=== PATIENT | female | born 1965 | race Caucasian/White ===

== ENCOUNTER 2016-08-11 16:37 | Emergency (ER) | payer MEDICAID | END 2016-08-11 18:45 | disposition home or self-care (01) | LOC: D.ER 16:37 | DX: S16.1XXA Strain of muscle, fascia and tendon at neck level, initial encounter (principal); V43.62XA Car passenger injured in collision with other type car in traffic accident, initial encounter; Y93.89 Activity, other specified; Y92.410 Unspecified street and highway as the place of occurrence of the external cause; S29.012A Strain of muscle and tendon of back wall of thorax, initial encounter; F17.200 Nicotine dependence, unspecified, uncomplicated ==

== ENCOUNTER 2018-04-06 05:40 | Emergency (ER) | payer MEDICAID ==
[~2018-04-06] VITALS: Ht 167.6 cm; Wt 63.6 kg
[2018-04-06 05:45] VITALS: Ht 167.6 cm; Wt 63.6 kg
[2018-04-06] MEDS ORDERED: CLARITIN 10 MG10 MG PO (05:47)
[2018-04-06] MEDS ORDERED: BENADRYL25 MG PO (05:47)
[2018-04-06] MEDS ORDERED: PHENYLEPHRINE (05:48)
[2018-04-06] MEDS ORDERED: MUCINEX600 MG PO (05:48)
[2018-04-06 07:10] LABS: ALBUMIN 3.5 g/dL (3.4-5.0); ALKALINE PHOSPHATASE 88 U/L (46-116); ALT (SGPT) 18 U/L (10-68); BILIRUBIN - TOTAL 0.43 mg/dL (0.2-1.3); CALC OSMOLALITY 278 mosm/kg (275-300); CALCIUM 8.6 mg/dL (8.5-10.1); CARBON DIOXIDE 22.2 mmol/L (21.0-32.0); CHLORIDE - SERUM 105 mmol/L (98-107); CREATININE - SERUM 0.6 mg/dL (0.6-1.3); GLUCOSE 119 mg/dL (74-106); POTASSIUM - SERUM 3.6 mmol/L (3.5-5.1); PROTEIN - SERUM 7.3 g/dL (6.4-8.2); SODIUM 140 mmol/L (136-145); UREA NITROGEN 9 mg/dL (7-18); eGFR NON AFRICAN AMERICAN > 90 mL/min (90-120)
[2018-04-06 07:21] LABS: CKMB 0.5 U/L (0.0-3.6); CREATINE KINASE 42 UL (21-215); THYROID STIMULATING HORMONE 2.29 uIU/mL (0.36-3.74); TROPONIN-I < 0.017 ng/mL (0.000-0.060)
[2018-04-06 07:25] LABS: BASOPHILS 0.2 % (0-2); EOSINOPHILS 1.4 % (0-7); HEMATOCRIT 37.2 % (36.0-48.0); HEMOGLOBIN 12.8 g/dL (12-16); IMMATURE GRANULOCYTES 0.4 % (0-5); LYMPHOCYTES 16.6 % (15-50); MCH 31.8 pg (26.0-34.0); MCHC 34.4 g/dL (31.0-37.0); MCV 92.3 fL (80.0-100.0); MEAN PLATELET VOLUME 10.3 fL (7.4-10.4); MONOCYTES 7.8 % (2-11); NEUTROPHILS 73.6 % (40-80); PLATELET COUNT 324 10x3/uL (130-400); RBC 4.03 10x6/uL (4.00-5.40); RDW 13.5 % (11.5-14.5); WBC 10.9 10x3/uL (4.8-10.8)
[2018-04-06 08:56] VITALS: BP 109/66
[2018-04-06] MEDS ORDERED: KEFLEX500 MG PO (21:07)
== END 2018-04-06 08:50 | disposition home or self-care (01) ==
LOC: D.ER 05:40
PROVIDERS: Family Medicine
DX: R06.02 Shortness of breath (principal); J01.90 Acute sinusitis, unspecified; F17.200 Nicotine dependence, unspecified, uncomplicated

== ENCOUNTER 2018-04-06 20:14 | Emergency (ER) | payer MEDICAID ==
[~2018-04-06] VITALS: Ht 167.6 cm; Wt 61.8 kg
[~2018-04-06 20:14] MED LIST: BENADRYL25 MG PO; CLARITIN 10 MG10 MG PO; MUCINEX600 MG PO; PHENYLEPHRINE
[2018-04-06 20:30] VITALS: Ht 167.6 cm; Wt 61.8 kg
[2018-04-06] MEDS ORDERED: KEFLEX500 MG PO (21:07)
[2018-04-06 21:44] VITALS: BP 121/81
== END 2018-04-06 21:30 | disposition home or self-care (01) ==
LOC: D.ER 20:14
DX: J01.90 Acute sinusitis, unspecified (principal); J06.9 Acute upper respiratory infection, unspecified